=== PATIENT | female | born 1960 | race Caucasian/White ===

== ENCOUNTER 2023-07-25 22:04 | Emergency (ER) | payer SELFPAY ==
[2023-07-25 22:07] VITALS: BP 120/66
[2023-07-25 22:13] VITALS: BMI 23.6
[2023-07-25] MEDS: GlucaGen 1 MG IV (22:46)
[2023-07-25] MEDS: MAALOX 30 ML PO (22:47)
--- NOTE | 2023-07-25 23:29 | ED.GENMED ---
History of Present Illness
General
Chief Complaint: Throat Problem
Source: patient
Exam Limitations: none
Time Seen by Provider: 07/25/23 22:30
Travel History
Have you had any contact with someone who has COVID-19?: No
Do you have any symptoms of coronavirus? Fever > 100 degrees, chills, cough, shortness of breath, sore throat, loss of taste or smell, muscle aches, or headache?: No
History of Present Illness
History of Present Illness:
This is a 62 year old female that comes in with c/o something stuck in her throat. Patient states that she was out to dinner with her friends. States that there is either a piece of chicken or a cucumber stuck in her throat. States that it has been
2 hours before she came and it was still feeling the same. States that she can swallow her own saliva and that she has been able to drink water and get this down. States that she has discomfort into her ears and down her throat into her chest.
States that she is nauseated. Denies any fever, chills, SOB, abd pain, vomiting, diarrhea, headache, dizziness, urinary burning.
Past History
Past History
ED Past Medical History: None; Negative Asthma, HTN, Hypercholesterolemia or NIDDM
ED Past Surgical History: Gynecological (Lumpectomy)
Social History
Tobacco: Former smoker
Alcohol: Occasional
Personal: Single
Living: alone
Review of Systems
Review of Systems
All Other Systems: ROS reviewed and negative except as documented in HPI and ROS
Constitutional: Reports no symptoms; Denies fever or chills
EENT: Reports other (Feels like something stuck in her throat)
Respiratory: Denies cough or trouble breathing
Cardiac: Reports chest pain
ABD/GI: Reports nausea; Denies abdominal pain, vomiting or diarrhea
: Reports no symptoms
Musculoskeletal: Reports no symptoms
Skin: Reports no symptoms
Neurological: Reports no symptoms; Denies dizzy or headache
Psychiatric: Reports no symptoms
Phy Exam
General Physical Exam
General Presentation: well appearing and no apparent distress
General age: appears stated age
General Skin: warm and dry
General Habitus: normal
General Mental: alert
General Hydration: appears well hydrated
ENT Exam
ENT Exam: TM's normal, pharynx normal and neck supple
Eye Exam
Eye Exam: EOMI
Cardiovascular Exam
Cardiovascular Exam: regular rate/rhythm, no edema, no murmur and normal peripheral pulses
Pulmonary Exam
Pulmonary Exam: lungs clear, no respiratory distress, no rales, chest non tender, no crackles, no rhonchi, no wheezing and no cough
Gastrointestinal Exam
Gastrointestinal Exam: normal bowel sounds, non tender, soft, no organomegaly, no pulsatile mass and non distended
Musculoskeletal Exam
Musculoskeletal Exam: full ROM and no edema
Skin Exam
Skin Exam: normal color, warm/dry, no rash and no petechia
Psychiatric Exam
Psychiatric Exam: normal mood/affect
Course
Orders/Labs/Results
Orders:
Orders
07/25/23 22:39
Glucagon [GlucaGen] 1 mg IV NOW STA
Mag Hydrox/Al Hydrox/Simeth [Maalox] 30 ml PO NOW STA
07/25/23 23:29
Mag Hydrox/Al Hydrox/Simeth [Maalox] 30 ml Phenobarb/Hyoscy/Atropine/Scop [] 10 ml Viscous Lidocaine 2% [Xylocaine Viscous Cup] 10 ml PO NOW
07/25/23 23:35
Electrocardiogram (*1) Urgent
Reason for Study: Chest Pain
EKG- Treatment ONCE
Mag Hydrox/Al Hydrox/Simeth [Maalox] 30 ml .ROUTE .STK-MED ONE
Phenobarb/Hyoscy/Atropine/Scop [] 10 ml .ROUTE .STK-MED ONE
Viscous Lidocaine 2% [Xylocaine Viscous Cup] 15 ml .ROUTE .STK-MED ONE
07/25/23 23:43
Complete Blood Count/With Diff Urgent
Comprehensive Metabolic Panel Urgent
Troponin I Urgent
07/26/23 01:06
Acetaminophen [Tylenol] 1,000 mg PO NOW STA
Abnormal Lab Results
07/25/23
23:43
RDW 10.9 L %
(11.5-14.5)
Absolute Lymphs (auto) 0.8 L 10^3/uL
(1.2-3.4)
Neutrophils % 82.0 H %
(42.2-75.2)
Lymphocytes % 10.2 L %
(20.5-51.1)
Sodium 134 L mmol/L
(135-145)
BUN 24 H mg/dl
(7-17)
Glucose 160 H mg/dl
(70-99)
07/25/23 23:43
07/25/23 23:43
Vital Signs
Initial and Last Documented VS:
Initial Vital Signs
Temp Pulse Resp BP Pulse Ox
97.7 F 78 18 120/66 99
07/25/23 22:07 07/25/23 22:07 07/25/23 22:07 07/25/23 22:07 07/25/23 22:07
Last Documented Vital Signs
Temp Pulse Resp BP Pulse Ox
97.7 F 68 16 129/79 99
07/25/23 22:07 07/26/23 01:29 07/26/23 01:29 07/26/23 01:29 07/26/23 01:29
MDM/Problems Addressed
Differential Diagnosis Includes:
Esophageal food obstruction, Esophageal irritation
MDM/Problems Addressed:
This is a 62 year old female that comes in with c/o feeling like there is something stuck in her throat.
Will check labs and medicate with Glucagon and Maalox.
Patient was not feeling any better will given GI cocktail
Patient is able to swallow her own saliva. Is drinking fluids and eat a cracker. States that she still feels like something is there. Patient has been seen by Dr. Carroll and myself and we both have explained to patent that this is most likely a
scratch as she is able to swallow as stated above. Will give patient Tylenol and have her follow up with the ENT specialist as needed. Return with any concerns.
Chronic conditions affecting care:
NA
Acute Exacerbation and/or Progression of Chronic Illness:
NA
*Pulse Oximetry
Patient hypoxic: no
*EKG
Interpreted by ED Provider?: Yes
Heart Rate: 66
Rate: normal
Rhythm: sinus
[place]: normal axis
Interval: normal interval
QRS Pattern: normal QRS
Ischemia: no ischemia
*Reconnaissance Crewmember Interpretation
Rate: Reconnaissance Crewmember- N/A
*Critical Care Note
Total Time (30-74mins, 75-104mins- exclusive of procedures): Not Applicable
ED Attending Note
-
Portions of this chart may have been created with voice recognition software.� Occasional wrong word or��sound alike� substitutions may have occurred due to the inherent limitations of voice recognition software.
Discharge Plan
Departure
Patient Disposition: Home (Routine Discharge)
Date of Disposition: 07/26/23
Time of Disposition: 01:08
Patient with high blood pressure during this ER visit?: No
Condition: Good
Covid-19: Not Applicable
Discharge Problem:
Throat irritation
Prescriptions:
New
pantoprazole [Protonix] 40 mg tablet,delayed release (DR/EC)
40 mg PO DAILY Qty: 10 0RF
Referrals:
Cheryl Grayson CRNP [Family Provider] -
Angelo Washington MD [Active] - As needed
Activity Restrictions/Additional Instructions:
As discussed, your blood work shows that you are dehydrated. Please increase your water intake to 8-8oz glasses daily. The fact that you are able to swallow your own saliva, liquids, eat food this is most likely a scratch. You may follow up with the
ENT specialist as needed. This sensation will go away. IF YOU HAVE ANY OTHER CONCERNS PLEASE RETURN TO THE EMERGENCY ROOM.
Interventions
Interventions:
*Risk Screen - Suicide Last Done: 07/25/23 22:14
*General Assessment Last Done: 07/25/23 22:14
*Neglect/Abuse Screening Last Done: 07/25/23 22:14
ED- Fall Risk Assessment Last Done: 07/25/23 22:15
*ED COVID-19 Vaccine History Last Done: 07/25/23 22:14
*Nursing Disposition Last Done: 07/26/23 01:37
ED-EENT Assessment Last Done: 07/25/23 22:15
ED- Pulmonary Assessment Last Done: 07/25/23 22:15
Discharge Date and Time
Discharge Date/Time: 07/26/23 01:37
[2023-07-25] MEDS: MAALOX 50 PO (23:38)
[2023-07-25 23:49] LABS: % Basophils 0.8 % (0-2); % Immature Granulocytes 0.3 % (0-0.5); % Lymphocytes 10.2 % (20.5-51.1); % Monocytes 5.7 % (1.7-9.3); Absolute Basophils 0.1 10^3/uL (0-0.2); Absolute Eosinophils 0.1 10^3/uL (0-0.7); Absolute Lymphocytes 0.8 10^3/uL (1.2-3.4); Absolute Monocytes 0.4 10^3/uL (0.1-0.6); Hematocrit 37.8 % (37.0-47.0); Hemoglobin 13.5 g/dL (12.0-16.0); Mean Corp Hgb Conc. 35.7 g/dL (33.0-37.0); Mean Corpuscular Hgb 30.5 pg (27.0-31.0); Mean Corpuscular Volume 85.5 fL (81.0-99.0); Mean Platelet Volume 9.6 fL (7.4-10.4); Nucleated Red Blood Cells % 0 %; Platelet Count 184 10^3/uL (130-400); Red Blood Cell Count 4.42 10^6/uL (4.20-5.40); Red Cell Dist. Width 10.9 % (11.5-14.5); White Blood Cell Count 7.4 10^3/uL (4.8-10.8)
[2023-07-26 00:03] LABS: ALT (SGPT) 20 U/L (0-35); AST (SGOT) 24 U/L (14-36); Albumin 4.4 g/dl (3.5-5.0); Alkaline Phosphatase 59 U/L (38-126); Blood Urea Nitrogen 24 mg/dl (7-17); Carbon Dioxide 27 mmol/L (22-30); Chloride 100 mmol/L (98-107); Estimated Creatinine Clearance 78 ml/min; Glucose 160 mg/dl (70-99); Potassium 3.7 mmol/L (3.5-5.1); Sodium 134 mmol/L (135-145); Total Bilirubin 0.4 mg/dl (0.2-1.3); Total Protein 6.6 g/dl (6.3-8.2); eGFR > 60.00
[2023-07-26 00:14] LABS: Troponin I < 0.012 ng/ml
[2023-07-26] MEDS: TYLENOL 1000 MG PO (01:09)
[2023-07-26 01:29] VITALS: BP 129/79
== END 2023-07-26 01:37 | disposition home or self-care (01) ==
LOC: EMR 22:04
PROVIDERS: Clinical Nurse Specialist Family Health; EMERGENCY PHYSICIAN Student in an Organized Health Care Education/Training Program; FAMILY PHYSICIAN Nurse Practitioner
DX: R07.0 Pain in throat (principal); Z87.891 Personal history of nicotine dependence
CPT/HCPCS: 99284; 96374; 80053; 84484; 85025; 93005; J1610